=== PATIENT | female | born 1990 | race Asian ===

== ENCOUNTER 2017-07-02 09:34 | Inpatient (IN) | payer BC ==
[~2017-07-02] VITALS: Ht 167.6 cm; Wt 168.0 kg
[2017-07-03] MEDS ORDERED: GLYB1TAB13 PO (01:02)
[2017-07-03] MEDS ORDERED: LACTATED RINGERS 1,000 ML IV SCH (12:19)
[2017-07-03] MEDS ORDERED: OXYTOCIN 30U/ 0.9% NaCL 500ML 500 ML IV ONE (12:19)
[2017-07-03] MEDS ORDERED: D5%-LACTATED RINGERS 1,000 ML IV SCH (12:19)
[2017-07-03] MEDS ORDERED: MISOPROSTOL 200 MCG TABLET ONE (12:20)
[2017-07-03] MEDS ORDERED: LIDOCAINE 1%, 20ML ONE (12:20)
[2017-07-03] MEDS ORDERED: NEWBORN KIT ONE ×2 (12:20→12:35)
[2017-07-03] MEDS ORDERED: OXYTOCIN 30U/ 0.9% NaCL 500ML 500 ML ONE ×2 (12:21→13:55)
[2017-07-03] MEDS ORDERED: FENTANYL PF 100 MCG/2ML IV PRN (12:30)
[2017-07-03] MEDS ORDERED: FENTANYL PF 100 MCG/2ML IVPush PRN (12:30)
[2017-07-03] MEDS ORDERED: PENICILLIN GK 5,000,000 UNITS in DEXTROSE 5% 100 ML IVPB ONE (12:30)
[2017-07-03] MEDS ORDERED: FENTANYL PF 100 MCG/2ML ONE (12:41)
[2017-07-03 12:50] LABS: HEMATOCRIT 36.8 % (34.6-47.8); WHITE BLOOD COUNT 16.6 x10^3/uL (3.4-10)
[2017-07-03] MEDS ORDERED: PLEASE ENTER HEIGHT AND WEIGHT MC SCH (13:00)
[2017-07-03] MEDS: IBUPROFEN 600 MG TABLET PO PRN ×2 (13:30→19:19)
[2017-07-03] MEDS ORDERED: IBUPROFEN 600 MG TABLET ONE (13:40)
[2017-07-03] MEDS: OXYTOCIN 30U/ 0.9% NaCL 500ML 500 ML IV SCH ×2 (13:59→23:41)
[2017-07-03] MEDS ORDERED: OXYcodone/APAP 5/325MG TABLET PO PRN (14:00)
[2017-07-03] MEDS ORDERED: CARBOPROST TROMETHAMINE 250 MCG/ML, 1ML IM PRN (14:00)
[2017-07-03] MEDS ORDERED: MISOPROSTOL 200 MCG TABLET PR PRN (14:00)
[2017-07-03] MEDS ORDERED: ONDANSETRON 2MG/ML, 2ML IV PRN (14:00)
[2017-07-03] MEDS ORDERED: METHYLERGONOVINE 0.2 MG/ML IM PRN (14:00)
[2017-07-03] MEDS ORDERED: GLYCERIN ADULT SUPP PR PRN (14:00)
[2017-07-03] MEDS ORDERED: ACETAMINOPHEN 325 MG TABLET PO PRN (14:00)
[2017-07-03] MEDS ORDERED: IBUPROFEN 800 MG TABLET PO PRN (14:00)
[2017-07-03] MEDS ORDERED: BISACODYL 10 MG SUPP PR PRN (14:00)
[2017-07-03] MEDS ORDERED: METOCLOPRAMIDE 5 MG/ML, 2ML IV PRN (14:00)
[2017-07-03 14:20] VITALS: BP 128/75
[2017-07-03 15:15] VITALS: BP 117/68
[2017-07-03] MEDS: OXYcodone/APAP 5/325MG TABLET PO PRN (19:19)
[2017-07-03 20:00] VITALS: BP 98/62
[2017-07-03 21:15] LABS: HEMATOCRIT 35.1 % (34.6-47.8); HEMOGLOBIN 11.5 g/dL (11.7-16.4); WHITE BLOOD COUNT 17.6 x10^3/uL (3.4-10)
[2017-07-04 00:10] VITALS: BP 101/64
[2017-07-04] MEDS: IBUPROFEN 600 MG TABLET PO PRN ×2 (02:57→14:04)
[2017-07-04] MEDS: OXYcodone/APAP 5/325MG TABLET PO PRN ×2 (02:57→14:04)
[2017-07-04 04:00] VITALS: BP 108/66
[2017-07-04 07:20] VITALS: BP 122/74
[2017-07-04] MEDS ORDERED: PRENATAL VIT/IRON/FA 1 EACH TABLET ONE (07:27)
[2017-07-04] MEDS: DOCUSATE 100 MG CAPSULE PO PRN (07:30)
[2017-07-04] MEDS: PRENATAL VIT/IRON/FA 1 EACH TABLET PO SCH (07:30)
[2017-07-04 21:00] VITALS: BP 105/63
[2017-07-05] MEDS: OXYcodone/APAP 5/325MG TABLET PO PRN (00:21)
[2017-07-05] MEDS: IBUPROFEN 600 MG TABLET PO PRN (00:21)
[2017-07-05 07:20] VITALS: BP 109/72
[2017-07-05] MEDS: DOCUSATE 100 MG CAPSULE PO PRN (08:40)
[2017-07-05] MEDS: PRENATAL VIT/IRON/FA 1 EACH TABLET PO SCH (08:40)
[2017-07-05] MEDS ORDERED: IBUP-1223 PO (10:26)
[2017-07-05] MEDS ORDERED: OXYC-302 PO (10:26)
[2017-07-05] MEDS ORDERED: PREN1TAB98 PO (10:29)
== END 2017-07-05 12:01 | disposition home or self-care (01) | DRG 775 ==
LOC: EDBD → LDIP 07-03 12:15 → 2NW 07-03 15:07
PROVIDERS: ADMIT Student in an Organized Health Care Education/Training Program; ATTEND Student in an Organized Health Care Education/Training Program
PROC: 10E0XZZ Delivery of Products of Conception, External Approach (ICD-10-PCS; principal; 2017-07-03)
PROC: 10907ZC Drainage of Amniotic Fluid, Therapeutic from Products of Conception, Via Natural or Artificial Opening (ICD-10-PCS; 2017-07-03)
DX: O34.211 Maternal care for low transverse scar from previous cesarean delivery (principal); O24.429 Gestational diabetes mellitus in childbirth, unspecified control; O99.824 Streptococcus B carrier state complicating childbirth; Z37.0 Single live birth; Z3A.39 39 weeks gestation of pregnancy; Z83.3 Family history of diabetes mellitus
CPT/HCPCS: 36415; 85025; 86850; 86900; J2540; J3010; J2590; J7120

== ENCOUNTER 2017-07-02 23:26 | Outpatient (CLI) | payer BC ==
[~2017-07-02] VITALS: Ht 162.6 cm; Wt 75.9 kg
[2017-07-02 23:51] VITALS: BP 128/75
[2017-07-03] MEDS ORDERED: GLYB1TAB13 PO (01:02)
== END 2017-07-03 01:15 | disposition home or self-care (01) ==
LOC: LDOP 23:26
PROVIDERS: ATTEND Student in an Organized Health Care Education/Training Program
DX: O42.92 Full-term premature rupture of membranes, unspecified as to length of time between rupture and onset of labor (principal); O62.9 Abnormality of forces of labor, unspecified; O26.893 Other specified pregnancy related conditions, third trimester; R10.9 Unspecified abdominal pain; Z3A.39 39 weeks gestation of pregnancy
CPT/HCPCS: 59025; 99211; G0463